=== PATIENT | male | born 1980 | race Caucasian/White ===

== ENCOUNTER 2023-06-12 20:00 | Inpatient (IN) | payer OTHER, SELFPAY ==
[2023-06-12] VITALS (16 sets, daily range): BP systolic 138–185; BP diastolic 83–113; BMI 34.0; BMI 37.0
--- NOTE | 2023-06-12 12:59 | ED.GENMED ---
History of Present Illness
General
Chief Complaint: Chest Pain
Source: patient and spouse
Exam Limitations: none
Time Seen by Provider: 06/12/23 12:58
Travel History
Have you had any contact with someone who has COVID-19?: No
Do you have any symptoms of coronavirus? Fever > 100 degrees, chills, cough, shortness of breath, sore throat, loss of taste or smell, muscle aches, or headache?: No
History of Present Illness
History of Present Illness:
42-year-old male developed some very low midsternal xiphoid area chest discomfort after a long walk today. He walks 6 miles. This did not occur during the walk. He ran yesterday with no issues. No radiation of symptoms. No shortness of breath
pleuritic pain nausea diaphoresis. Symptoms have been going on about an hour and a half since his walk was completed.
Past History
Past History
ED Past Medical History: None
ED Past Surgical History: Other (Inguinal hernia repair)
Social History
Tobacco: Non-smoker
Personal:
Living: with family
Review of Systems
Review of Systems
All Other Systems: Not applicable
Respiratory: Reports no symptoms
ABD/GI: Denies abdominal pain
Phy Exam
Physical Exam
Physical Exam:
GENERAL: Alert and oriented in no apparent distress
EYE: Orbits normal.
NECK: Supple, no thyroid palpable
ENT: Pharynx without erythema
CARDIAC: Regular rate and rhythm without any obvious murmurs.
LUNGS: Clear breath sounds,normal
ABDOMEN: Soft, periumbilical hernia nontender. Easily reducible. No rebound or guarding no mass or hernia. Very minimal upper almost subxiphoid tenderness.
NEUROLOGICAL: Alert and oriented , grossly non-focal
SKIN: Warm and dry, no rash or lesion, no discoloration, skin intact.
MUSCULOSKELETAL: No edema,no deformity.Good color
PSYCH: Normal and appropriate interaction.
Scores
Heart Score for Chest Pain Patients
STEMI patient?: No
History: Moderately Suspicious
ECG: Normal
Age: </= 45 years
Risk Factors: No Risk Factors
Troponin: >1 - <3 x Normal Limit
Heart Score for Chest Pain Patients: 2
Heart Score Risk: 2.5% MACE over next 6 weeks
Course
Orders/Labs/Results
Orders:
Orders
06/12/23 Lunch
NPO
Allow oral meds: Yes
Allow clear liquids: Sips of Clears
NPO with Ice Chips: Yes
06/12/23 12:43
ECG [Electrocardiogram (*1)] Urgent
Reason for Study: Chest Pain
EKG- Treatment ONCE
06/12/23 13:11
CT Chest Pe Study Urgent
Comment:
Reason For Exam: Chest pain/tachycardia/calf pain
Cardiac Monitoring- Treatment ONCE
0.9% Sodium Chloride 500 ml [Nss] 500 ml IV BOLUS
Pulse Ox/cont/shift [RESP] Stat
Quantity: 1
06/12/23 13:12
US Periph Venous LOWER Ext LT Urgent
Comment:
Reason For Exam: Calf pain
06/12/23 13:25
Complete Blood Count/With Diff Urgent
Comprehensive Metabolic Panel Urgent
Lipase Urgent
Troponin I Urgent
06/12/23 16:19
Electrocardiogram (*1) Stat
Reason for Study: Other
Other Reason for Exam: chest pain
EKG- Treatment ONCE
06/12/23 16:39
Troponin I Urgent
06/12/23 17:28
Aspirin Chewable [Low Strength Aspirin] 324 mg PO NOW STA
Heparin 4,000 units IV NOW STA
06/12/23 17:30
Heparin 11494 Units/250 ml 25,000 units in 250 ml IV PER PROTOCOL
Weight to be used for heparin protocol in kilograms (kg):: 110.5
Protocol:: Cardiac Tx/Acute Coronary
PTT Goal Range to be used:: PTT 73 to 111 seconds
Order type:: Initial
INITIAL Infusion Dose (UNITS/KG/hr) & then follow protocol:: 12 units/kg/hr
Infusion Dose in UNITS/hr & then follow protocol (UNITS/hr):: 1,000
INFUSION RATE in mL/hr & then follow protocol (mL/hr):: 10
PTT less than or equal to 64 seconds:: Increase rate by 200 units/hr (+ 2 mL/hr)
PTT 64.1 to 72.9 seconds:: Increase rate by 100 units/hr (+ 1 mL/hr)
PTT 73 to 111 seconds:: Target Range. No change in rate.
PTT 111.1 to 130.9 seconds:: Decrease rate by 100 units/hr (- 1 mL/hr)
PTT 131 to 199.9 seconds:: HOLD for 1 hr. Then decrease rate by 200 units/hr (- 2 mL/hr)
PTT greater than or equal to 200 seconds:: HOLD for 2 hrs & Notify Provider. Then decrease by 200 units/hr (-
2 mL/hr)
Lab follow-up:: Each change, PTT q6h until 2 consecutive are therapeutic. Then PTT
daily.
06/12/23 17:44
PTT Urgent
Comment: Obtain baseline before beginning heparin infusion if not already collected
06/12/23 18:32
Metoprolol [Lopressor] 5 mg 0.9% Sodium Chloride 50 ml [Nss] 50 ml IV NOW
06/12/23 19:38
Admit/Transfer Patient As Directed
Co-Sign Provider:
Level of Care: Inpatient admission
Assign to:: IVU
Physician / Group: Yanira/Hospitalist
Diagnosis: NSTEMI/UA/HTN urgency
Reason for Hospitalization: NSTEMI/UA/HTN urgency
Expected length of stay greater than two midnights?: Yes
ELOS- Estimated Length of Stay in days: 3
I certify the patient meets the requirements for IP care: Yes
06/12/23 19:42
Code Status As Directed
Resuscitation Status: Full Code
06/12/23 20:00
Metoprolol [Lopressor] 50 mg PO BID
06/12/23 21:24
Electrocardiogram (*1) Q6H
Reason for Study: Chest Pain
Comment: at admission and Q3H for total of 3, to be done with each troponin
0.9% Sodium Chloride 1000 ml [Nss] 1,000 ml IV 75 mls/hr
Rosuvastatin Calcium [Crestor] 20 mg PO QPM
06/12/23 21:24
CARDIOLOGY CONSULT Routine
Consulting Provider: Zackary Mcfarlane
Was physician already notified: Yes
Reason for consult: HTN urgency/emergency, UA/NSTEMI
DIETARY CONSULT Routine
Reason for Consult: cardiac diet
Activity As Directed
Activity Level: With Assistance
ECG as needed As Directed
ECG as needed for:: Chest Pain
Additional Instructions:: with chest pain x 2 episodes.
INT (Intravenous Needle Therapy) As Directed
Comment: maintain peripheral IV access
Intake/ Output As Directed
Frequency: Per unit guidelines
Pneumatic Compression Sleeves As Directed
Type: Knee high
Vital Signs As Directed
Frequency: q4h
Weight As Directed
Frequency: Daily
O2 Therapy [RESP] Routine
Nasal Cannula Liter Flow: 2 LPM
Titrate/Wean O2 to maintain O2 sat greater than (%): 90
Special Instructions: 2 liters/minute as needed for pulse oximetry less than 90%
Pulse Ox/spot Check [RESP] Routine
Quantity: 1
Special Instructions: on admission and then every shift if on oxygen
DX Deep Vein Thrombosis Video Routine
06/12/23 21:47
Glycohemoglobin (HgbA1c) Routine
Troponin I Q3H
Comment: at admit & Q3H for 3 total including ED draws, obtain ECG with each level
06/13/23 00:44
PTT Stat
Troponin I Q3H
Comment: at admit & Q3H for 3 total including ED draws, obtain ECG with each level
06/13/23 07:26
Cardiovascular Evaluation IN AM
Complete Blood Count/No Diff IN AM
Comprehensive Metabolic Panel IN AM
Protime/PTT IN AM
06/13/23 08:00
Aspirin Chewable [Low Strength Aspirin] 81 mg PO DAILY
06/13/23 09:24
Electrocardiogram (*1) Q6H
Reason for Study: Chest Pain
Comment: at admission and Q3H for total of 3, to be done with each troponin
Abnormal Lab Results
06/12/23 06/12/23
13:25 16:39
MCV 78.7 L fL
(80.0-94.0)
MCHC 37.1 H g/dL
(33.0-37.0)
Neutrophils % 75.3 H %
(42.2-75.2)
Lymphocytes % 16.6 L %
(20.5-51.1)
Glucose 117 H mg/dl
(70-99)
Troponin I 0.252 H* D ng/ml
06/12/23 13:25
06/12/23 13:25
Vital Signs
Initial and Last Documented VS:
Initial Vital Signs
Temp Pulse Resp BP Pulse Ox
97.8 F 98 17 184/110 99
06/12/23 12:51 06/12/23 12:51 06/12/23 12:51 06/12/23 12:51 06/12/23 12:51
Last Documented Vital Signs
Temp Pulse Resp BP Pulse Ox
98.3 F 62 16 143/91 97
06/14/23 07:47 06/14/23 10:00 06/14/23 07:47 06/14/23 08:29 06/14/23 07:47
MDM/Problems Addressed
Differential Diagnosis Includes:
Patient with ongoing vague lower midline substernal chest pain. No cardiac risk factors. Exercises regularly without issues. This did not occur during exercise but afterwards. Does have a mild sinus tachycardia and has had some ongoing calf
pain. [place] the [place]. Pulmonary emboli also a consideration. Workup in progress.
*Pulse Oximetry
Patient hypoxic: no
*EKG
Interpreted by ED Provider?: Yes
Interpretation: abnormal
Comparison EKG: no comparison EKG present
Heart Rate: 106
Rate: tachycardiac
Rhythm: sinus
Tie Siding: normal axis
Interval: normal interval
QRS Pattern: normal QRS
Ischemia: no ischemia
*Critical Care Note
Total Time (30-74mins, 75-104mins- exclusive of procedures): Not Applicable
Update Note
Update Note:
after second trop..... Patient updated on troponin. EKG stable. Essentially asymptomatic. However with bump in troponin clearly needs cardiac admission. Discussed with cardiology. Aspirin and heparin. Lengthy discussion with family
1815.... Blood pressure much improved from arrival but still 163/99. Heart rate 102. Will give a dose of Lopressor. Discussed with cardiology.
ED Attending Note
-
Portions of this chart may have been created with voice recognition software.� Occasional wrong word or��sound alike� substitutions may have occurred due to the inherent limitations of voice recognition software.
Discharge Plan
Departure
Patient Disposition: Admit
Date of Disposition: 06/12/23
Time of Disposition: 17:35
Presentation/result/management discussed w/ accepting MD/DO: cardiology
Discharge Problem:
Unstable angina, Possible non-STEMI HI
Interventions
Interventions:
*Risk Screen - Suicide Last Done: 06/12/23 13:09
*General Assessment Last Done: 06/12/23 13:09
*Neglect/Abuse Screening Last Done: 06/12/23 13:09
ED- Fall Risk Assessment Last Done: 06/12/23 13:09
*ED COVID-19 Vaccine History Last Done: 06/12/23 13:09
*Nursing Disposition Last Done: 06/12/23 21:36
ED- Cardiac Assessment Last Done: 06/12/23 13:09
Discharge Date and Time
Discharge Date/Time: 06/12/23 21:36
[2023-06-12] MEDS: NSS 500 IV (13:28)
[2023-06-12 13:37] LABS: % Basophils 0.6 % (0-2); % Eosinophils 0.5 % (0-6); % Immature Granulocytes 0.3 % (0-0.5); % Lymphocytes 16.6 % (20.5-51.1); % Monocytes 6.7 % (1.7-9.3); % Neutrophils 75.3 % (42.2-75.2); Absolute Basophils 0.1 10^3/uL (0-0.2); Absolute Lymphocytes 1.4 10^3/uL (1.2-3.4); Absolute Monocytes 0.6 10^3/uL (0.1-0.6); Absolute Neutrophils 6.5 10^3/uL (1.4-6.5); Hematocrit 42.1 % (39.0-52.0); Hemoglobin 15.6 g/dL (13.0-18.0); Mean Corp Hgb Conc. 37.1 g/dL (33.0-37.0); Mean Corpuscular Hgb 29.2 pg (27.0-31.0); Mean Corpuscular Volume 78.7 fL (80.0-94.0); Mean Platelet Volume 9.5 fL (7.4-10.4); Nucleated Red Blood Cells % 0 % (-); Platelet Count 247 10^3/uL (130-400); Red Blood Cell Count 5.35 10^6/uL (4.70-6.10); Red Cell Dist. Width 11.9 % (11.5-14.5); White Blood Cell Count 8.7 10^3/uL (4.8-10.8)
[2023-06-12 13:54] LABS: ALT (SGPT) 44 U/L (0-50); AST (SGOT) 29 U/L (17-59); Albumin 4.6 g/dl (3.5-5.0); Alkaline Phosphatase 71 U/L (38-126); Blood Urea Nitrogen 16 mg/dl (9-20); Calcium 9.4 mg/dl (8.4-10.2); Carbon Dioxide 26 mmol/L (22-30); Chloride 104 mmol/L (98-107); Estimated Creatinine Clearance 119 ml/min; Glucose 117 mg/dl (70-99); Lipase 117 U/L (23-300); Potassium 4.1 mmol/L (3.5-5.1); Sodium 137 mmol/L (135-145); Total Bilirubin 0.6 mg/dl (0.2-1.3); Total Protein 7.3 g/dl (6.3-8.2); eGFR > 60.00
[2023-06-12 13:58] LABS: Troponin I 0.034 ng/ml
[2023-06-12 17:19] LABS: Troponin I 0.252 ng/ml
[2023-06-12] MEDS: LOW STRENGTH ASPIRIN 324 MG PO (17:48)
[2023-06-12 18:03] LABS: APTT 27.3 Sec (23.4-35.0)
[2023-06-12] MEDS: HEPARIN 4000 UNITS IV (18:21)
[2023-06-12] MEDS: HEPARIN 25000 UNITS/250 ML IV (18:24)
[2023-06-12] MEDS: LOPRESSOR 55 MG IV (18:43)
--- NOTE | 2023-06-12 19:00 | EDRN ---
Report received, introduced myself to patient, Dr. Doyle at bedside working on admission, patient resting comfortably waiting on to come in.
--- NOTE | 2023-06-12 19:12 | HPS.HSE ---
Family Physician
-
Family Physician: Viral Jarvis
Chief Complaint
-
chest pain
History of Present Illness
The patient is a 42 yo male with PMH significant for umbilical hernia who presents due to midsternal/substernal chest discomfort that is non-radiating, which he experienced after a 6 mile walk today and was persistent. There was no radiation to jaw
nor arm, not associated with f//n/v/diaphoresis/palpitations. Chest symptoms stopped about 1 hour ago in the ED. He has never experienced these symptoms before, and has no family history of cardiac events. He is training for the [address]
Run on Tuesday, and ran 2 miles yesterday without chest symptoms. He has no other medical issues, though states he's had borderline high BP in the past that has not required medications.
EKG without evidence for acute ischemia; trop became elevated in ED, from 0.034 to 0.252
BP in ED 184/110, currently 158/105
ED txt:
Lopressor 5 mg IV
Heparin gtt
Aspirin 324
IVF NS 250 mL bolus
Medical History
Past Medical History
Past Medical History: Reports Other (umbilical hernia)
Past Surgical History: Reports Other (inguinal hernia repair)
Social History
Tobacco: Non-smoker
Alcohol: Occasional
Drug: None
Personal:
Living: With Family
Employment: Employed
Family History
Family History: Other (Father-stage IV gastric cancer from cardiac arrest presumed due to cancer)
Allergies / Home Medications
Allergies reflects when Allergies were last updated in [facility].
Home Medications with original date entered in [facility]
Allergy/Medication List:
Allergies
Allergy/AdvReac Type Severity Reaction Status Date / Time
No Known Allergies Allergy Unverified 06/12/23 12:51
Home Medications
No Meds [No Current Medications] 06/12/23
OTC allergy med- Jennifer
Review of Systems
-
A 12 point ROS was completed and negative except as noted: Yes
Physical Exam
Vital Signs
Vital Signs
Temp Pulse Resp BP Pulse Ox
97.8 F 106 21 158/105 96
06/12/23 12:51 06/12/23 18:45 06/12/23 18:45 06/12/23 18:43 06/12/23 18:45
Physical Exam
General: Well Developed, Well Nourished and No Apparent Distress
HEENT: NormoCephalic, Anicteric and Moist mucous membranes
Respiratory: Clear and Non Labored Respirations
Cardiac: S1/S2 and Regular Rhythm
GI: Soft, Non Tender and Non Distended
Musculoskeletal: No Clubbing, No Cyanosis and No Edema
Skin: Warm and Dry
Neuro: AO x 3, No Motor Deficits and Nonfocal/grossly intact
Psych: Anxious (anxiety related to being in hospital)
Laboratory Results
-
06/12/23 13:25
06/12/23 13:25
Laboratory Results
APTT 27.3 Sec (23.4-35.0) 06/12/23 17:44
Total Bilirubin 0.6 mg/dl (0.2-1.3) 06/12/23 13:25
AST 29 U/L (17-59) 06/12/23 13:25
ALT 44 U/L (0-50) 06/12/23 13:25
Alkaline Phosphatase 71 U/L (38-126) 06/12/23 13:25
Troponin I 0.252 ng/ml H* D 06/12/23 16:39
Lipase 117 U/L (23-300) 06/12/23 13:25
Data Reviewed
-
CT Scan: Report Reviewed by me (no acute dx of chest, no PE)
Ultrasound: Report Reviewed by me (LLE US due to calf pain- no evidence for DVT)
Impression/Plan
-
IMPRESSION:The patient is a 42 yo male with PMH significant for umbilical hernia who presents due to midsternal/substernal chest discomfort that is non-radiating, which he experienced after a 6 mile walk today and was persistent. He is training for
the [address] Run on Tuesday, and ran 2 miles yesterday without chest symptoms. He has no other medical issues, though states he's had borderline high BP in the past that has not required medications.
EKG without evidence for acute ischemia; trop became elevated in ED, from 0.034 to 0.252
BP in ED 184/110, currently 158/105
ED txt:
Lopressor 5 mg IV
Heparin gtt
Aspirin 324
IVF NS 250 mL bolus
#Chest pain, currently chest-pain free after aspirin, hep gtt, and metoprolol, associated with troponin delta up to 0.252, concerning for UA versus NSTEMI vs demand ischemia with chest pain from HTN emergency
-EKG without evidence for STEMI
-CT Chest without PE/no dissection/no acute pathology
-Cards Cx - to see in ED
#HTN Emergency - BP remains elevated
-admit to IVU
-serial trop
-cont Hep gtt
-prn BP meds IV (just received metoprolol 5 mg IV in ED) for now and may require gtt, monitor in IVU
DVT proph-hep gtt
Full Code
[2023-06-12] MEDS: LOPRESSOR 50 MG PO (20:27)
--- NOTE | 2023-06-12 20:40 | EDRN ---
Patient ambulated to the restroom without difficulty, changed linen on bed, patient had been sweating through on sheets, resting comfortably and waiting for room at this time.
--- NOTE | 2023-06-12 21:14 | CON.CAR ---
Consultation
Consultation Request
Date/Time Consultation Requested: 06/12/2023 16: 00
Date/Time Consultation Performed: 17: 00
Requesting Provider: Yanira
Performing Provider: Denys
Reason for Consultation: chest pain
Medical History
-
Chief Complaint: chest pain
History of Present Illness:
Viral has no significant past medical history except sleep apnea. He has been exercising regularly and trying to do a half marathon. He walked 6 miles this morning without issues. He got back into his car and developed a weird sensation in his
lower sternum. He described it as a chest discomfort. It was a 2 out of 10 intensity. It was coming and going throughout his 45-minute drive home. It persisted when he got home and he came to the ER. Initial troponin was 0.034 then repeat was
0.252. He denies chest pain or shortness of breath at present
Past Medical History
Past Medical History: Other (See HPI)
Past Surgical History: None
Social History
Tobacco: Non-Smoker
Alcohol: Occasional
Drug: None
Personal:
Living: With Family
Employment: Employed (He works at an [employer])
Family History
Family History: Other (His father of cardiac arrest in the setting of gastric cancer at age 63, mother is alive and well at 72)
Allergies / Home Medications
Allergy/AdvReac Type Severity Reaction Status Date / Time
No Known Allergies Allergy Unverified 06/12/23 12:51
�Medication �Instructions �Recorded �Confirmed �Type
No Meds [No Current Medications] 06/12/23 06/12/23 History
Review of Systems
-
History Source: Patient
All other systems: Negative unless noted
Constitutional: No Symptoms
EENT: No Symptoms
Respiratory: No Symptoms
Cardiac: Chest Pain
Abdomen/GI: No Symptoms
: No Symptoms
Musculoskeletal: No Symptoms
Skin: No Symptoms
Neurological: No Symptoms
Endocrine: No Symptoms
Hematologic/Lymphatic: No Symptoms
Physical Exam
Vital Signs
Temp Pulse Resp BP Pulse Ox
97.8 F 91 14 163/91 96
06/12/23 12:51 06/12/23 20:27 06/12/23 19:30 06/12/23 20:27 06/12/23 19:30
General: Well developed, well nourished in NAD.
Neck: Supple, no JVD, HJR, carotids +2 B/L, no bruits bilaterally.
Heart: Non displaced PMI, RRR, no murmurs, No S3, S4, no rubs.
Lungs: Clear to auscultation bilaterally, no wheeze, rhonchi, rubs bilaterally,
normal expiratory phase.
Abdomen: Normal bowel sounds, soft, non-tender, non-distended.
Extremities: No clubbing, cyanosis or edema bilaterally.
Neuro: Grossly nonfocal, awake, alert and oriented x3.
Lab Results
06/12/23 13:25
06/12/23 13:25
Troponin I 0.252 ng/ml H* D 06/12/23 16:39
Impression / Plan
-
Impression:
nstemi
Elevated blood pressure in the emergency room
History of sleep apnea
Plan:
He presents with chest pain and non-STEMI. EKG is unremarkable.
He is pain-free at present
Explained risk and benefits of catheterization and stenting in detail and we will proceed in a.m. if no further chest pain
Will treat with IV heparin as well as Lopressor.
Will add aspirin and Brilinta as well.
Will add statin therapy
Follow-up blood pressure with starting Lopressor. Likely an element of whitecoat syndrome. He is very anxious at present
Discussed with patient and family at bedside as well as ER and admitting service. Discussed with interventional cardiology
Data Reviewed
-
EKG: Tracing Personally Visualized and interpreted
Radiology: Report Reviewed by me
Medical Tests (Nuc Med, Echo etc): Image Personally Visualized and interpreted
Labs: Labs Reviewed by me
Old Records: Reviewed
--- NOTE | 2023-06-12 21:40 | PTCARENOTE ---
Rec'd pt from ED via [facility], AAOx3. Pt able to ambulate unassisted into the rm. Pt w/no c/o CP or SOB. Heparin IV drip infusing as ordered through a patent IV line. VS stable, w/elevated BPs, but BP is decreasing from earlier in the day in the
ED. Pt SR on scallop binder. Pt reporting 'feeling very anxious' & states he was 'told by ER Dr that he he could get someting if needed'. scallop binder Hospitalist [employer] notified & order rec'd for one time PO dose of Ativan. Pt asking for medication to be
administered after his admission assessment is complete. Pt oriented to , call lobo within reach, & plan of care ongoing.
[2023-06-12] MEDS: CRESTOR 20 MG PO (22:18)
[2023-06-12] MEDS: NSS 1000 IV (22:18)
[2023-06-12] MEDS: BRILINTA 180 MG PO (22:18)
[2023-06-12] MEDS: ATIVAN 0.5 MG PO (23:46)
[2023-06-13] VITALS (15 sets, daily range): BP systolic 131–171; BP diastolic 74–105; BMI 36.9
[2023-06-13 01:11] LABS: APTT 33.8 Sec (23.4-35.0)
[2023-06-13 07:40] LABS: Hematocrit 43.6 % (39.0-52.0); Hemoglobin 15.3 g/dL (13.0-18.0); Mean Corp Hgb Conc. 35.1 g/dL (33.0-37.0); Mean Corpuscular Hgb 28.6 pg (27.0-31.0); Mean Corpuscular Volume 81.5 fL (80.0-94.0); Mean Platelet Volume 9.6 fL (7.4-10.4); Platelet Count 242 10^3/uL (130-400); Red Blood Cell Count 5.35 10^6/uL (4.70-6.10); Red Cell Dist. Width 11.9 % (11.5-14.5); White Blood Cell Count 9.3 10^3/uL (4.8-10.8)
[2023-06-13 07:51] LABS: INR 1.12; PT 14.2 Sec (11.4-14.6)
[2023-06-13 07:52] LABS: APTT 36.1 Sec (23.4-35.0)
[2023-06-13 08:08] LABS: ALT (SGPT) 43 U/L (0-50); AST (SGOT) 60 U/L (17-59); Albumin 4.4 g/dl (3.5-5.0); Alkaline Phosphatase 75 U/L (38-126); Blood Urea Nitrogen 11 mg/dl (9-20); Calcium 9.6 mg/dl (8.4-10.2); Carbon Dioxide 26 mmol/L (22-30); Chloride 105 mmol/L (98-107); Estimated Creatinine Clearance > 125 ml/min; Glucose 111 mg/dl (70-99); HDL Cholesterol 53 mg/dl; LDL Cholesterol, Calculated 82 mg/dl; Potassium 4.1 mmol/L (3.5-5.1); Sodium 137 mmol/L (135-145); Total Bilirubin 1.1 mg/dl (0.2-1.3); Total Cholesterol 157 mg/dl (50-199); Triglyceride 114 mg/dl (10-149); Very Low Density Lipoprotein 22 mg/dl (0-30); eGFR > 60.00
[2023-06-13] MEDS: LOW STRENGTH ASPIRIN 81 MG PO (08:34)
[2023-06-13] MEDS: BRILINTA 90 MG PO ×2 (08:35→20:02)
[2023-06-13] MEDS: LOPRESSOR 50 MG PO (08:35)
--- NOTE | 2023-06-13 08:49 | W.PN.HOSP.TC ---
Today's Communication/Plan
-
Cardiac catheterization
Echocardiogram
Assessment / Plan
Assessment / Plan
Gen-AAOx3, NAD, obese
HEENT-NC, AT, anicteric, clear oral mm
Neck-supple
CV-reg, no M, +S1/S2
Lungs-clear B/L
Abd-soft, NT, ND
Ext-no edema
Musculoskeletal-no cyanosis, clubbing
Skin-warm and dry
Neuro-grossly non-focal
Psych-calm, cooperative
NSTEMI -hemodynamically stable. Continue IV heparin. No history of heart disease. Awaiting catheterization today, echocardiogram. Currently NPO. Troponin has peaked, 4.0.
Was not on any prescription medications prior to admission.
Continue aspirin, ticagrelor, rosuvastatin, metoprolol, IV heparin.
LDL 82, total cholesterol 157, HDL 53, triglycerides 114.
Hypertensive emergency -resolved. No known history of hypertension. Will need to start checking his blood pressures at home. Currently on metoprolol 50 mg twice daily.
YULISSA -continue CPAP at bedtime. Patient brought in his own unit.
Obesity due to excess calories -spent time discussing lifestyle changes, diet, exercise, weight loss. 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
Full code
Anticipated Discharge: Within 24 hours
Subjective/Interval History
-
Date of Service: June 13, 2023
Patient seen and examined. No complaints. Slightly anxious.
Objective Data
-
Labs:
Laboratory Results
06/13/23 06/13/23 06/13/23
00:44 07:26 07:26
WBC 9.3
Hgb 15.3
Hct 43.6
Plt Count 242
PT 14.2
INR 1.12
APTT 33.8 36.1 H Cancelled
Sodium 137
Potassium 4.1
Chloride 105
Carbon Dioxide 26
BUN 11
Creatinine 0.9
Glucose 111 H
Calcium 9.6
Total Bilirubin 1.1
AST 60 H
ALT 43
Alkaline Phosphatase 75
Vital Signs:
Vital Signs
Temp Pulse Resp BP Pulse Ox
98.2 F 82 20 146/95 97
06/13/23 07:16 06/13/23 07:45 06/13/23 07:16 06/13/23 07:15 06/13/23 07:16
I&O
06/12/23 06/13/23 06/14/23
06:59 06:59 06:59
Intake Total 720 / 720
Balance 720 / 720
Review of Systems
-
History Source: Patient
All other systems: Reviewed and negative
[2023-06-13 09:30] LABS: Glycohemoglobin (HgbA1c) 5.6 % (4.0-5.6)
--- NOTE | 2023-06-13 09:32 | PTCARENOTE ---
Received patient this morning resting in bed. IV heparin infusing at 1200 units/hr, increased to 1400 units/hr as per protocol. Patient denies any chest pain or sob. EKG done, remains NPO x meds. Patient seen by hospitalist, await cardiology consult.
--- NOTE | 2023-06-13 10:23 | PTCARENOTE ---
Patient sent to the clinical lab assistant, the patient's is waiting in his room.
--- NOTE | 2023-06-13 12:01 | CM ---
Chart reviewed. Met with the patient's , patient is independent of ADLS, lives with his and daughter in a 2 S[address], 1 SANTY, 0 DME. Plan is for the patient to return home. CM to follow
--- NOTE | 2023-06-13 12:05 | CM ---
Pricing on Brilinta 90mg BID is $40 a month through the patient's [employer] prescription plan. Patient qualifies for the $5 copay card. I will place it in his red discharge folder. Patient's [facility] does have it in stock.
[2023-06-13] MEDS: NSS IV (12:06)
[2023-06-13] MEDS: NSS 1000 IV (12:11)
[2023-06-13] MEDS: COREG 12.5 MG PO ×2 (12:14→20:03)
--- NOTE | 2023-06-13 12:20 | ITS.CL.CATH ---
Electronics Mechanic Apprentice - Catheterization
Cardiac Catheterization
Procedure Report:
LEFT HEART CATHETERIZATION
Date of Procedure: June 13, 2023
Referring: Dr. Zackary Mcfarlane
PROCEDURES:
1. Left heart catheterization with coronary and single-plane left ventriculography
INDICATION: This is a 42-year-old gentleman who has been training for the [employer]. On 06/11/23, he went for a long run at [place]. 06/12/23, he went for a 6 mile walk as an 'easy day'. He felt well while walking but
noted 2/10 chest discomfort when he got back into his car with an unusual sensation in the mow sternum. He was evaluated in [facility] ED with an initial troponin measuring 0.034 ng/ml and measured 0.252 ng/ml on repeat. His subsequent
troponin levels peaked at 4.01 ng/mL and trended lower. He had no recurring chest discomfort. His blood pressures have been elevated throughout his hospital stay and his LDL cholesterol measured 82 mg/dL. He is now referred for coronary
angiography.
ACCESS: Right radial artery, 6 [place]yr[place] sheath
HEMODYNAMICS : (mmHg)
AO (s/d) : 159/99
LV (s/d) : 152/17
LVEDP : 24
CORONARY FINDINGS
DOMINANCE: Right
LEFT MAIN: Normal
LEFT ANTERIOR DESCENDING: The LAD arises normally from the left main running in the anterior interventricular groove. The LAD has only minor irregularities with no focal obstructive stenosis. The first diagonal branch arises from the proximal
third of the LAD. IRISH 10/STAFF MIDWIFE/APPRENTICESHIP DIRECTOR 30 exhibits significant vessel overlap and possible haziness at the origin of the diagonal branch while the coned in image (IRISH 35/CAU 35) does not suggest significant stenosis at the origin of the first diagonal
branch.
CIRCUMFLEX: The circumflex is a large-caliber nondominant vessel. OM1 arises very proximally from the circumflex and runs in a distribution typical of a ramus intermedius. OM1 is large and widely patent. The mid circumflex gives rise to a small
to medium caliber OM 2 and terminates in a moderate caliber posterolateral branch
RIGHT CORONARY ARTERY: The right coronary artery is a large-caliber dominant vessel that is widely patent. The PDA begins as a large-caliber vessel that is widely patent. The distal PDA is somewhat hazy and terminates in the very distal vessel
somewhat abruptly. SCAD cannot be excluded
VENTRICULOGRAPHY: Left ventriculography is performed in an CAVANAUGH projection. The digital single-plane left ventricular ejection fraction is estimated at 50 to 55% with possible mild anterolateral hypokinesis
RADIATION SUMMARY: Fluoro Time (min): 5.1, Dose (mGy): 778, DAP (Gy.cm2) : 50.6
Closure Device: TR band
CONCLUSIONS
1. Coronary artery disease as described above. The first diagonal branch has 1 image with possible ostial hazy stenosis. The steep IRISH 35 / CAU 35 did not suggest significant ostial stenosis. The PDA tapers distally with mild haziness; can not
exclude SCAD.
RECOMMENDATIONS
1. Medical therapy to include aspirin and Brilinta / Plavix, oral beta sherri, RENETTA, and high intensity statin. Needs good blood pressure control
2. Await echocardiogram
3. Return for evaluation of recurring symptoms. Discussed with the patient and his .
Copy to: Dr. Zackary Mcfarlane
--- NOTE | 2023-06-13 12:22 | PTCARENOTE ---
Received patient from the dentures lab technician at 1155 after cardiac cath via R radial artery. Radial band is in place right wrist, no signs of hematoma, hand warm with rapid capillary refill, strong radial pulse palpated with pulse ox of 97% on the right hand.
Monitoring VS, BP elevated, given stat dose of coreg as ordered. Reviewed post cath activity restrictions. IV infusing RFA as ordered post cath. Patient denies any pain, some discomfort with radial band. at the bedside, call lobo within reach.
--- NOTE | 2023-06-13 15:16 | PTCARENOTE ---
Patient assisted oob to the bathroom and voided qs. Tolerated lunch, monitoring VS, BP now 131/75. Family at the bedside.
[2023-06-13] MEDS: CRESTOR 20 MG PO (17:07)
[2023-06-13] MEDS: TYLENOL 650 MG PO (18:10)
--- NOTE | 2023-06-13 18:14 | PTCARENOTE ---
patient called out c/o sinus pressure headache, 3 out of 10, Tylenol po given as ordered.
--- NOTE | 2023-06-13 22:57 | PTCARENOTE ---
Pt received at change of shift- family at bedside- emotional support provided. Lots of education provided on HTN and home BP monitoring. encouraged a journal to trend numbers arm use and time of day. CAD booklet in room. POC discussed - pt
verbalized understanding. pt without complaints- call lobo within reach.
[2023-06-14 02:48] VITALS: BP 130/89
[2023-06-14 03:19] LABS: Hematocrit 41.9 % (39.0-52.0); Hemoglobin 15.1 g/dL (13.0-18.0); Mean Corpuscular Hgb 28.8 pg (27.0-31.0); Mean Platelet Volume 9.3 fL (7.4-10.4); Platelet Count 236 10^3/uL (130-400); Red Blood Cell Count 5.24 10^6/uL (4.70-6.10); Red Cell Dist. Width 12.1 % (11.5-14.5); White Blood Cell Count 9.1 10^3/uL (4.8-10.8)
[2023-06-14 03:44] LABS: Blood Urea Nitrogen 14 mg/dl (9-20); Calcium 9.6 mg/dl (8.4-10.2); Carbon Dioxide 25 mmol/L (22-30); Chloride 106 mmol/L (98-107); Estimated Creatinine Clearance 113 ml/min; Glucose 105 mg/dl (70-99); Potassium 3.9 mmol/L (3.5-5.1); Sodium 140 mmol/L (135-145); eGFR > 60.00
[2023-06-14 07:47] VITALS: BP 143/91
[2023-06-14] MEDS: COREG 12.5 MG PO (08:29)
[2023-06-14] MEDS: LOW STRENGTH ASPIRIN 81 MG PO (08:29)
[2023-06-14] MEDS: BRILINTA 90 MG PO (08:29)
[2023-06-14] MEDS: ZESTRIL 5 MG PO (08:29)
--- NOTE | 2023-06-14 09:24 | W.PN.HOSP.TC ---
Today's Communication/Plan
-
Discharge
Assessment / Plan
Assessment / Plan
Gen-AAOx3, NAD, obese
HEENT-NC, AT, anicteric, clear oral mm
Neck-supple
CV-reg, no M, +S1/S2
Lungs-clear B/L
Abd-soft, NT, ND
Ext-no edema
Musculoskeletal-no cyanosis, clubbing
Skin-warm and dry
Neuro-grossly non-focal
Psych-calm, cooperative
NSTEMI -hemodynamically stable. Underwent cardiac catheterization yesterday, findings of possible coronary artery dissection. No intervention needed. Troponin has peaked, 4.0. Echocardiogram shows LVEF 50 to 55%, mild concentric LVH.
Was not on any prescription medications prior to admission.
Continue aspirin, ticagrelor, rosuvastatin, metoprolol, IV heparin.
LDL 82, total cholesterol 157, HDL 53, triglycerides 114.
Hypertensive emergency -resolved. No known history of hypertension. Will need to start checking his blood pressures at home, discussed with patient. Will discharge on current meds including carvedilol and lisinopril.
YULISSA -continue CPAP at bedtime. Patient brought in his own unit.
Obesity due to excess calories -spent time discussing lifestyle changes, diet, exercise, weight loss. Close outpatient follow-up with his primary care doctor and concrete paver.
Full code
Dispo -medically stable for discharge home today. Outpatient follow-up with PCP and cardiology. Discussed with cardiology service.
32 minutes spent in discharge process.
Anticipated Discharge: Today
Subjective/Interval History
-
Date of Service: June 14, 2023
Patient seen and examined. Feels fine. No complaints. Eager to go home.
Objective Data
-
Labs:
Laboratory Results
06/14/23
02:53
WBC 9.1
Hgb 15.1
Hct 41.9
Plt Count 236
Sodium 140
Potassium 3.9
Chloride 106
Carbon Dioxide 25
BUN 14
Creatinine 1.1
Glucose 105 H
Calcium 9.6
Vital Signs:
Vital Signs
Temp Pulse Resp BP Pulse Ox
98.3 F 70 16 143/91 97
06/14/23 07:47 06/14/23 08:29 06/14/23 07:47 06/14/23 08:29 06/14/23 07:47
I&O
06/13/23 06/14/23 06/15/23
06:59 06:59 06:59
Intake Total 720 / 720 1485 / 1485
Balance 720 / 720 1485 / 1485
Review of Systems
-
History Source: Patient
All other systems: Reviewed and negative
--- NOTE | 2023-06-14 09:28 | W.DS.TRANS ---
DC Summary - Product Applications Engineer
-
Discharge Instructions:
Discharge Diagnosis/Procedures Myocardial infarction, hypertensive emergency,
cardiac catheterization
Diet Low Cholesterol,Low Fat
Activity As tolerated
Driving Restrictions No driving for 24 hours
Bathing Restrictions None
Instructions:
Stand-Alone Forms: DC Instructions- Cath/EP Lab
Changes to Home Medications: No
Discharge Medications:
DC Medications w/original date entered in [employer]
aspirin 81 mg chewable tablet (Children's Aspirin) 81 mg PO DAILY #60 tabs 06/14/23
carvedilol 12.5 mg tablet 12.5 mg PO BID #60 tabs 06/14/23
lisinopril 5 mg tablet 5 mg PO DAILY #30 tabs 06/14/23
rosuvastatin 20 mg tablet 20 mg PO QPM #30 tabs 06/14/23
ticagrelor 90 mg tablet (Brilinta) 90 mg PO BID #60 tabs 06/14/23
Home Medication Changes
Pending Results: No
--- NOTE | 2023-06-14 10:26 | W.PN.CARDCBS ---
Today's Communication / Plan
-
Would discharge on aspirin/Brilinta, statin, beta-sherri, RENETTA inhibitor
Recommended cardiac rehab
Outpatient follow-up arranged
Impression / Plan
-
Impression:
NSTEMI
HTN - new diagnosis
History of sleep apnea
Plan:
Presents with chest pain found to have elevated troponin which peaked at 4.0 consistent with non-STEMI
Underwent invasive coronary angiography 06/12 with no culprit vessel identified. PDA with tapered appearance and therefore SCAD was considered as a possible etiology.
TTE with preserved LV function and no SWMA
Currently chest pain-free
No evidence of mechanical complication or CHF on exam. Review of telemetry is unremarkable.
Medical management of CAD with aspirin/Brilinta, statin, BB and RENETTA
Cardiac rehab referral
Outpatient follow up arranged
Stable cardiac status
Discussed with patient and at bedside as well as hospital medicine service
Progress Note - Cable Wirer
Subjective
Date of Service: June 14, 2023
NAOE. Resting comfortably OOB to chair. No further chest pain. No SOB/RAY. No pain at the R radial cath site.
Objective
Labs:
06/14/23 02:53
06/14/23 02:53
Labs
Hgb 15.1 g/dL (13.0-18.0) 06/14/23 02:53
Hct 41.9 % (39.0-52.0) 06/14/23 02:53
Plt Count 236 10^3/uL (130-400) 06/14/23 02:53
PT 14.2 Sec (11.4-14.6) 06/13/23 07:26
INR 1.12 06/13/23 07:26
APTT Cancelled 06/13/23 14:45
Sodium 140 mmol/L (135-145) 06/14/23 02:53
Potassium 3.9 mmol/L (3.5-5.1) 06/14/23 02:53
BUN 14 mg/dl (9-20) 06/14/23 02:53
Creatinine 1.1 mg/dL (0.7-1.3) 06/14/23 02:53
Glucose 105 mg/dl (70-99) H 06/14/23 02:53
Troponins
06/12/23 06/12/23 06/12/23
13:25 16:39 21:47
Troponin I 0.034 0.252 H* D 3.240 H* D
06/13/23 06/13/23
00:44 07:26
Troponin I 4.010 H* 3.570 H*
Vital Signs and I&O:
Vital Signs
Temp Pulse Resp BP Pulse Ox
98.3 F 62 16 143/91 97
06/14/23 07:47 06/14/23 10:00 06/14/23 07:47 06/14/23 08:29 06/14/23 07:47
Vital Signs
Temp Pulse Resp BP Pulse Ox
98.3 F 62 16 143/91 97
06/14/23 07:47 06/14/23 10:00 06/14/23 07:47 06/14/23 08:29 06/14/23 07:47
Intake & Output
06/12/23 06/13/23 06/14/23 06/15/23
06:59 06:59 06:59 06:59
Intake Total 720 / 720 1485 / 1485 480 / 480
Balance 720 / 720 1485 / 1485 480 / 480
Physical Exam
Physical Exam
Gen: NAD, AAOx3
HEENT: NC/AT, sclera anicteric
Neck: No JVD
CV: RRR, NL s1/s2, no M/R/G
Lungs: CTAB
Abd: S/ND
Ext: No LE edema, R radial cath site CDI
Skin: Warm, dry
Neuro: Non-focal
== END 2023-06-14 11:24 | disposition home or self-care (01) | DRG 280 ==
LOC: IVU 20:00
PROVIDERS: Internal Medicine Interventional Cardiology; Nurse Practitioner; ADMITTING PHYSICIAN Internal Medicine; ATTENDING PHYSICIAN Hospitalist; CONSULT PHYSICIAN Internal Medicine Cardiovascular Disease; EMERGENCY PHYSICIAN Emergency Medicine; FAMILY PHYSICIAN Internal Medicine
PROC: B2111ZZ Fluoroscopy of Multiple Coronary Arteries using Low Osmolar Contrast (ICD-10-PCS; 2023-06-13)
PROC: 4A023N7 Measurement of Cardiac Sampling and Pressure, Left Heart, Percutaneous Approach (ICD-10-PCS; 2023-06-13)
PROC: B2151ZZ Fluoroscopy of Left Heart using Low Osmolar Contrast (ICD-10-PCS; 2023-06-13)
DX: I21.4 Non-ST elevation (NSTEMI) myocardial infarction (principal); I25.42 Coronary artery dissection; I16.1 Hypertensive emergency; G47.33 Obstructive sleep apnea (adult) (pediatric); E66.09 Other obesity due to excess calories; I25.10 Atherosclerotic heart disease of native coronary artery without angina pectoris; Z68.36 Body mass index [BMI] 36.0-36.9, adult
CPT/HCPCS: 71275; 80048; 80053; 80061; 83036; 83690; 84484; 85025; 85027; 85610; 85730; 93005; 93306; 93458; 93971; 96361; 96374; 96375; 99285; C1894; Q9967